=== PATIENT | female | born 1965 | race African-American/Black ===

== ENCOUNTER 2023-01-22 14:53 | Emergency (ER) | payer MEDICARE, MEDICAID ==
[~2023-01-22] VITALS: Ht 165.1 cm; Wt 85.0 kg
[2023-01-22 14:55] VITALS: TEMP 98.5; O2SAT 98
[2023-01-22] MEDS ORDERED: SODIUM CHLORIDE 0.9% 1,000 ML IV ONE (15:15)
[2023-01-22 15:16] VITALS: BP 206/91; PULSE 68; RESP 20
== END 2023-01-22 16:55 | disposition left against medical advice (07) ==
LOC: ER 14:53 → EDBEDREQ 16:17 → EDBEDREQTM 16:17 → ER 16:55
DX: S99.912A Unspecified injury of left ankle, initial encounter (principal); I10 Essential (primary) hypertension; R41.82 Altered mental status, unspecified; Z85.9 Personal history of malignant neoplasm, unspecified; X58.XXXA Exposure to other specified factors, initial encounter; Y93.89 Activity, other specified; Y92.89 Other specified places as the place of occurrence of the external cause; Y99.8 Other external cause status
CPT/HCPCS: 99284; 70450; 73600; 73620; J7030